=== PATIENT | male | born 1990 | race Caucasian/White ===

== ENCOUNTER 2016-12-01 12:54 | Day surgery (SDC) | payer SELFPAY ==
[2016-11-26 14:02] LABS: BASOPHILS 0.6 %; BASOPHILS ABSOLUTE 0.06 10/3/uL (0.0-0.16); EOSINOPHILS 7.4 %; EOSINOPHILS ABSOLUTE 0.76 10/3/uL (0.0-0.53); HEMATOCRIT 43.7 % (40.0-51.0); HEMOGLOBIN 15.6 g/dL (13.6-17.8); IMMATURE GRANULOCYTES 0.5 %; IMMATURE GRANULOCYTES ABSOLUTE 0.05 10/3/uL (0.0-0.11); LYMPHOCYTES 44.3 %; LYMPHOCYTES ABSOLUTE 4.52 10/3/uL (0.67-4.30); MANUAL DIFF NO %; MEAN CORPUS HGB CONC 35.7 g/dL (32.0-36.0); MEAN CORPUSCULAR HEMOGLOB 30.7 pg (26.0-34.0); MEAN PLATELET VOLUME 10.2 fL (9.2-13.0); MONOCYTES 7.3 %; MONOCYTES ABSOLUTE 0.75 10/3/uL (0.21-1.20); NEUTROPHILS 39.9 %; NEUTROPHILS ABSOLUTE 4.07 10/3/uL (2.02-8.40); PLATELET COUNT 261 10/3/uL (150-400); RBC DISTRIBUTION WIDTH 12.3 % (12.0-16.0); RED CELL COUNT 5.08 10/6/uL (4.7-6.1); WHITE BLOOD CELLS 10.2 10/3/uL (4.5-10.5)
[2016-11-26 14:12] LABS: BUN (BLOOD UREA NITROGEN) 15 MG/DL (6-23); CALCIUM, SERUM 8.9 MG/DL (8.5-10.4); CHLORIDE, SERUM 103 MMOL/L (96-112); CO2 (CARBON DIOXIDE) 26 MMOL/L (24-34); CREATININE 1.37 MG/DL (0.70-1.30); GFR AFRICAN AMERICAN 82 ML/MIN (>=60); GFR NON AFRICAN AMERICAN 71 ML/MIN (>=60); GLUCOSE, SERUM 91 MG/DL (60-99); POTASSIUM, SERUM 3.9 MMOL/L (3.5-5.3); SODIUM, SERUM 139 MMOL/L (135-148)
--- NOTE | ~2016-12-01 | OP ---
Record Of Operation [facility] [address] [place]. [address] NAME: JUANJO CHAN : 89 STATUS : [facility]#: [id number] AGE: 26 ADM/REG DATE : 12/01/16 MR#: [id number] REPORT SERV DATE: 12/01/16 DICTATED BY: JENS HAWKINS III DATE: 12/01/16 REPORT STATUS : Draft TRANSCRIBED BY: MATT DATE: 12/01/16 DATE OF PROCEDURE: 12/01/2016 PROCEDURE: Cystoscopy, right retrograde, right ureteroscopy, and insertion of double-J stent. PREOPERATIVE DIAGNOSIS: Retained right ureteral double-J stent and stone. POSTOPERATIVE DIAGNOSIS: Retained right ureteral double-J stent and stone. ANESTHESIA: General. INDICATION: The patient is a 26-year-old, who had a centimeter stone in July. A stent was placed, since it is a proximal stone, and there was difficulty with access. He was scheduled to come back, and his appointments were never kept, and despite numerous calls, messages, and a letter, he did not return for three months. He comes in for removal of the stent, possible ureteroscopy. I have discussed at length with the patient and his , the fact that the stent is probably incrusted, and it may require several procedure where to just to get the stent out. I also explained to his creatinine is 1.37, which probably reflects poor drainage from the right kidney. He understands the risks and complications, and the fact that he may he may need a nephrostomy if I cannot get the kidney drained, and may need additional procedures such as lithotripsy and ureteroscopy. DESCRIPTION OF PROCEDURE: He was prepped and draped in sterile fashion after general anesthesia was induced. The urethra was normal. The prostate was entered. It was minimally enlarged. The bladder was unremarkable. The stent was minimally encrusted. It came down nicely until the upper pole abutted the stone in the upper ureter. Despite slow and steady traction, I could not make any progress uncoiling the loop. I did not have enough loop to place a wire through the double-J stent. A wire was placed with some difficulty around the stent and it passed proximally. I then placed a rigid scope over the wire and could not advance it beyond the pelvic brim, and the distal coil of the stent was in danger of being pulled into the distal ureter. At this point, a [place] catheter and with a good bit of effort, I was able to pass it alongside the stone and opacify the upper tract. A 5-Honduran 26 cm Polaris stent was then placed, the suture was cut off in the urethra, so it could not be dislodged. The procedure was terminated. I explained to the that I do have the kidney draining now, we will probably have to do lithotripsy on the older stent, and I will try to combine that procedure with a cystoscopy to follow, hopefully removal of the stent, and ureteroscopy. The patient tolerated the procedure well. OB/MODL Jens Hawkins III, M.D. Record Of Operation [address] [address] NAME: JUANJO CHAN : 89 STATUS : [facility] PAT#: [id number] AGE: 26 ADM/REG DATE : 12/01/16 MR#: [id number] REPORT SERV DATE: 12/01/16 DICTATED BY: JENS HAWKINS III DATE: 12/01/16 REPORT STATUS : Draft TRANSCRIBED BY: MATT DATE: 12/01/16 / [id number] CC: Jens Hawkins III, M.D.
[~2016-12-01 12:54] MED LIST: BEN25 PO; T PO
[2016-12-09] MEDS ORDERED: NORCO1 TA2 (15:47)
== END 2016-12-01 17:18 | disposition home or self-care (01) ==
LOC: SDC 12:54
PROVIDERS: Urology
PROC: 0T768DZ Dilation of Right Ureter with Intraluminal Device, Via Natural or Artificial Opening Endoscopic (ICD-10-PCS; principal; 2016-12-01 14:30)
DX: N20.1 Calculus of ureter (principal)
CPT/HCPCS: 74420; 80048; 85025; A9270-GY; C1758; C1769; C2617; J2250; J2405; J2550; J2710; J3010; Q9967

== ENCOUNTER 2016-12-11 11:06 | Day surgery (SDC) | payer SELFPAY ==
--- NOTE | ~2016-12-11 | OP ---
Record Of Operation [facility] [address] [place]. [address] NAME: JUANJO CHAN : 89 STATUS : [facility]#: [id number] AGE: 26 ADM/REG DATE : 12/11/16 MR#: [id number] REPORT SERV DATE: 12/11/16 DICTATED BY: JENS HAWKINS III DATE: 12/11/16 REPORT STATUS : Draft TRANSCRIBED BY: MODL DATE: 12/11/16 DATE OF PROCEDURE: 12/11/2016 PROCEDURE: Cystoscopy, right retrograde, removal of encrusted stent, ureter ureteroscopic laser fragmentation in partial and removal of right ureteral calculus. PREOPERATIVE DIAGNOSIS: Right ureteral calculus and retaining the stent. POSTOPERATIVE DIAGNOSIS: Right ureteral calculus and retaining the stent. ANESTHESIA: General. SURGEON: Jens Hawkins M.D. INDICATIONS: This patient is a 26-year-old, who had a ureteroscopy in July. The stone was impacted. It was for the most part fragmented, however, due to visibility issues, I had to stop and place a stent. Despite calls and letters, etc., he did not come back to the office till last week, at which point the stent could not be removed. He had a lithotripsy immediately before the cystoscopy today, which the stent was focused upon. DESCRIPTION OF PROCEDURE: In the cysto suite, he was placed in dorsal supine position, prepped and draped in a sterile fashion. The urethra was normal. The prostate was small, normal size for age. The patient actually had a new stent placed to drain the kidney. Several weeks ago, a wire was placed through the stent into the kidney. The encrusted stent was then removed easily. Ureteroscopy was done with the rigid scope almost to the stone. I could not reach the stone due to the fulcrum effect of the ureter over the vessels. I did remove one stone from the ureter and then placed a ureteral sheath up above the iliac vessels. The flexible scope was then used to further fragment the stone. Good bit of it was dusted. There were some adherent to the bladder and to the ureteral wall, which required tedious lasering. I used a basket to dislodge several of these stones. Finally, all stone material was removed from the ureteral wall and in the kidney, I removed five to six small fragments. There was a cluster of stones in the lower pole, which was dusted into 1 mm and 2 mm fragments. Final inspection showed no significant sized fragments. The kidney was drained approximately every 5-7 minutes with a syringe to keep from over distending it. No extravasation was noted on a retrograde pyelogram with the flexible scope. The ureter also had no extravasation. A 6 x 26 Percuflex stent was placed with a loop in the renal pelvis and a loop in the bladder. We will remove the stent in approximately 7-10 days. I explained to the that he must come back for removal. OB/MODL Jens Hawkins III, M.D. Record Of Operation [address] [address] NAME: JUANJO CHAN : 89 STATUS : [facility] PAT#: [id number] AGE: 26 ADM/REG DATE : 12/11/16 MR#: [id number] REPORT SERV DATE: 12/11/16 DICTATED BY: JENS HAWKINS III DATE: 12/11/16 REPORT STATUS : Draft TRANSCRIBED BY: MATT DATE: 12/11/16 / [id number] CC: Jens Hawkins III, M.D.
--- NOTE | ~2016-12-11 | OP ---
Record Of Operation [facility] [address] [address] NAME: JUANJO CHAN : 89 STATUS : [facility]#: [id number] AGE: 26 ADM/REG DATE : 12/11/16 MR#: [id number] REPORT SERV DATE: 12/11/16 DICTATED BY: JENS HAWKINS III DATE: 12/11/16 REPORT STATUS : Draft TRANSCRIBED BY: MODL DATE: 12/11/16 DATE OF PROCEDURE: PROCEDURE: ESWL to encrusted right ureteral stent. PREOPERATIVE DIAGNOSIS: Right ureteral stone and right encrusted stent. POSTOPERATIVE DIAGNOSIS: Right ureteral stone and right encrusted stent. ANESTHESIA: General. DESCRIPTION OF PROCEDURE: Following induction of adequate general anesthesia, patient was placed on the Lithotripter table. The lithotripsy was begun on the lower end of the stents. The stents had moved pretty much together, so they were shocked together. We spread the shocks out from the tips of the stent, around the loops, and down to the remainder of the stents. He tolerated the procedure well, will be taken to cysto, and will hopefully be able to remove both stents and work on the ureteral stone. OB/MODL Jens Hawkins III, M.D. / [id number] CC: Jens Hawkins III, M.D.
[~2016-12-11 11:06] MED LIST changes: +NORCO1 TA2
[2016-12-11 12:04] LABS: ASCORBIC ACID (UR NOT ORDER) NEG (NEG); BILIRUBIN, URINE NEGATIVE (NEG); KETONE, URINE NEGATIVE (NEG); LEUKOCYTE ESTERASE(NOT OR MOD (NEG); WBC (NOT ORDERED) (RFLEX) 23 (0-5)
== END 2016-12-11 18:56 | disposition home or self-care (01) ==
LOC: SDC 11:06
PROVIDERS: Urology
PROC: 0TC68ZZ Extirpation of Matter from Right Ureter, Via Natural or Artificial Opening Endoscopic (ICD-10-PCS; principal; 2016-12-11 13:00)
DX: N20.1 Calculus of ureter (principal); T83.89XA Other specified complication of genitourinary prosthetic devices, implants and grafts, initial encounter; J30.2 Other seasonal allergic rhinitis; J45.909 Unspecified asthma, uncomplicated; Z87.442 Personal history of urinary calculi; Z79.891 Long term (current) use of opiate analgesic; Z79.1 Long term (current) use of non-steroidal anti-inflammatories (NSAID)
CPT/HCPCS: 50590; 74000; 74420; 81001; 87086; A9270-GY; C1758; C1769; C1894; C2617; J2175; J2250; J2405; J2710; J3010; Q9967